=== PATIENT | male | born 1945 | race Caucasian/White ===

== ENCOUNTER 2017-11-12 01:07 | Emergency (ER) | payer MEDICARE, BC, SELFPAY | END 2017-11-12 05:26 | disposition home or self-care (01) | PROVIDERS: Emergency Provider Emergency Medicine; PCP Internal Medicine Cardiovascular Disease; Visit Provider Emergency Medicine | DX: R31.9 Hematuria, unspecified (principal) | CPT/HCPCS: 36415; 51702; 51798; 80048; 81001; 85025; 85610; 85730; 99058; 99283 ==

== ENCOUNTER → 2018-01-01 11:21 | Outpatient (CLI) | payer MEDICARE, BC, SELFPAY ==
[2018-01-01 13:35] LABS: Prothrombin Time 21.7 SECONDS (10.1-12.7)
== END ==
PROVIDERS: PCP Internal Medicine Cardiovascular Disease; Visit Provider Internal Medicine Cardiovascular Disease
DX: I48.1 Persistent atrial fibrillation (principal); I48.4 Atypical atrial flutter
CPT/HCPCS: 36415; 85610

== ENCOUNTER → 2018-02-27 09:44 | Outpatient (CLI) | payer MEDICARE, BC, SELFPAY ==
[2018-02-27 10:32] LABS: INR 1.6 (0.9-1.3); Prothrombin Time 18.1 SECONDS (10.1-12.7)
== END ==
PROVIDERS: Family Provider Internal Medicine Cardiovascular Disease; PCP Internal Medicine Cardiovascular Disease; Visit Provider Internal Medicine Cardiovascular Disease
DX: I48.1 Persistent atrial fibrillation (principal)
CPT/HCPCS: 36415; 85610

== ENCOUNTER → 2018-03-07 09:00 | Outpatient (CLI) | payer MEDICARE, BC, SELFPAY ==
[2018-03-07 09:44] LABS: INR 1.7 (0.9-1.3); Prothrombin Time 19.2 SECONDS (10.1-12.7)
== END ==
PROVIDERS: Family Provider Internal Medicine Cardiovascular Disease; PCP Internal Medicine Cardiovascular Disease; Visit Provider Internal Medicine Cardiovascular Disease
DX: I48.2 Chronic atrial fibrillation (principal)
CPT/HCPCS: 36415; 85610

== ENCOUNTER → 2018-03-16 14:30 | Outpatient (CLI) | payer MEDICARE, BC, SELFPAY ==
[2018-03-16 15:35] LABS: INR 2.9 (0.9-1.3); Prothrombin Time 31.4 SECONDS (10.1-12.7)
== END ==
PROVIDERS: PCP Internal Medicine Cardiovascular Disease; Visit Provider Internal Medicine Cardiovascular Disease
DX: I48.4 Atypical atrial flutter (principal)
CPT/HCPCS: 36415; 85610

== ENCOUNTER → 2018-03-27 13:43 | Outpatient (CLI) | payer MEDICARE, BC, SELFPAY ==
[2018-03-27 15:02] LABS: INR 2.7 (0.9-1.3)
== END ==
PROVIDERS: PCP Internal Medicine Cardiovascular Disease; Visit Provider Internal Medicine Cardiovascular Disease
DX: I48.1 Persistent atrial fibrillation (principal)
CPT/HCPCS: 36415; 85610

== ENCOUNTER → 2018-04-30 12:55 | Outpatient (CLI) | payer MEDICARE, BC, SELFPAY ==
[2018-04-30 13:19] LABS: Prothrombin Time 22.4 SECONDS (10.1-12.7)
== END ==
PROVIDERS: PCP Internal Medicine Cardiovascular Disease; Visit Provider Internal Medicine Cardiovascular Disease
DX: I48.4 Atypical atrial flutter (principal); I48.1 Persistent atrial fibrillation
CPT/HCPCS: 36415; 85610

== ENCOUNTER → 2018-05-07 07:24 | Outpatient (CLI) | payer MEDICARE, BC, SELFPAY ==
[2018-05-07 09:16] LABS: Prothrombin Time 21.7 SECONDS (10.1-12.7)
== END ==
PROVIDERS: PCP Internal Medicine Cardiovascular Disease; Visit Provider Internal Medicine Cardiovascular Disease
DX: I48.1 Persistent atrial fibrillation (principal); I48.4 Atypical atrial flutter
CPT/HCPCS: 36415; 85610

== ENCOUNTER → 2018-05-10 08:14 | Outpatient (CLI) | payer MEDICARE, BC, SELFPAY ==
[2018-05-10 08:51] LABS: Hematocrit 47.5 % (41-53); Hemoglobin 15.9 g/dL (13.5-17.5); Mean Corpuscular HGB Conc 33.5 % (30-36); Mean Corpuscular Hemoglobin 30.9 PG (26-34); Mean Corpuscular Volume 92.1 fL (80-100); Platelet Count 195 X10^3/uL (150-400); Red Blood Cell Count 5.15 X10^6/uL (4.5-5.9); White Blood Cell Count 7.1 X10^3/uL (4.5-11.0)
[2018-05-10 09:20] LABS: Alanine Aminotransferase 31 IU/L (21-72); Albumin 4.5 g/dL (3.5-5.0); Albumin Globulin Ratio 1.5 (1.0-2.8); Alkaline Phosphatase 63 U/L (38-126); Aspartate Aminotransferase 35 IU/L (17-59); Bilirubin Total 0.7 mg/dL (0.2-1.3); Blood Urea Nitrogen 24 mg/dL (9-20); Calcium 9.6 mg/dL (8.4-10.2); Carbon Dioxide 24 mmol/L (22-32); Chloride 104 mmol/L (98-107); Cholesterol 156 mg/dL (140-199); Estimated Glomerular Filt Rate > 60.0 mL/min (>60); Globulin 3.1 g/dL (1.7-4.1); Glucose 130 mg/dL (80-110); HDL Cholesterol 27 mg/dL (40-60); HEMOLYSIS < 15 (0-50); LDL Cholesterol Calculated 74 mg/dL (<100); Potassium 4.1 mmol/L (3.4-5.1); Sodium 141 mmol/L (137-145); Total Protein 7.6 g/dL (6.3-8.2); Triglycerides 276 mg/dL (35-150)
== END ==
PROVIDERS: PCP Internal Medicine Cardiovascular Disease; Visit Provider Internal Medicine Cardiovascular Disease
DX: I48.1 Persistent atrial fibrillation (principal); I48.91 Unspecified atrial fibrillation
CPT/HCPCS: 36415; 80053; 80061; 85027

== ENCOUNTER → 2018-05-16 11:06 | Outpatient (CLI) | payer MEDICARE, BC, SELFPAY ==
[2018-05-16 12:24] LABS: INR 1.8 (0.9-1.3)
== END ==
PROVIDERS: Family Provider Internal Medicine Cardiovascular Disease; PCP Internal Medicine Cardiovascular Disease; Visit Provider Internal Medicine Cardiovascular Disease
DX: I48.1 Persistent atrial fibrillation (principal)
CPT/HCPCS: 36415; 85610

== ENCOUNTER → 2018-05-23 08:10 | Outpatient (CLI) | payer MEDICARE, BC, SELFPAY ==
[2018-05-23 09:49] LABS: INR 2.3 (0.9-1.3); Prothrombin Time 25.6 SECONDS (10.1-12.7)
== END ==
PROVIDERS: PCP Internal Medicine Cardiovascular Disease; Visit Provider Internal Medicine Cardiovascular Disease
DX: I48.1 Persistent atrial fibrillation (principal); I48.91 Unspecified atrial fibrillation
CPT/HCPCS: 36415; 85610

== ENCOUNTER → 2018-06-07 08:47 | Outpatient (CLI) | payer MEDICARE, BC, SELFPAY ==
[2018-06-07 10:29] LABS: INR 2.6 (0.9-1.3); Prothrombin Time 28.3 SECONDS (10.1-12.7)
== END ==
PROVIDERS: PCP Internal Medicine Cardiovascular Disease; Visit Provider Internal Medicine Cardiovascular Disease
DX: I48.4 Atypical atrial flutter (principal)
CPT/HCPCS: 36415; 85610

== ENCOUNTER → 2018-06-12 08:18 | Outpatient (CLI) | payer MEDICARE, BC, SELFPAY ==
[2018-06-12 09:24] LABS: INR 1.9 (0.9-1.3); Prothrombin Time 20.4 SECONDS (10.1-12.7)
== END ==
PROVIDERS: Family Provider Internal Medicine Cardiovascular Disease; PCP Internal Medicine Cardiovascular Disease; Visit Provider Internal Medicine Cardiovascular Disease
DX: I48.1 Persistent atrial fibrillation (principal)
CPT/HCPCS: 36415; 85610

== ENCOUNTER → 2020-01-03 09:38 | Outpatient (CLI) | payer MEDICARE, BC, SELFPAY ==
--- NOTE | 2020-01-03 10:34 | DI.US.S_ITS ---
PROCEDURE: US ABDOMEN LIMITED INDICATIONS: NAUSEA TECHNIQUE: Real-time focused scanning was performed of the abdomen, with image documentation. COMPARISON: None. FINDINGS: The liver demonstrates normal size. The liver demonstrates generalized increased echogenicity, with a heterogeneous, coarse echotexture. This decreases ultrasound sensitivity for detection of hepatic masses. Small sludge balls can be seen within the gallbladder, which appear mobile and do not demonstrate shadowing. The gallbladder wall is not thickened, measuring 3 mm or less. No specific pericholecystic fluid is seen. The sonographic Wilson sign is negative. There is no biliary dilatation, the common bile duct measures 5 mm. The pancreas is not seen. Numerous right renal cysts are incidentally noted, the largest measuring up to 1.7 cm. IMPRESSION: Small sludge balls can be seen within the gallbladder, without additional sonographic signs of cholecystitis. No biliary dilatation. The liver demonstrates increased echogenicity. This finding is nonspecific, yet it is most commonly attributed to fatty infiltration. Dictated by: Macho Mcginnis M.D. on 01/03/2020 at 11:54 Approved by: Macho Mcginnis M.D. on 01/03/2020 at 11:55
== END ==
PROVIDERS: Family Provider Internal Medicine Cardiovascular Disease; PCP Internal Medicine; Referring Provider Internal Medicine; Visit Provider Internal Medicine
DX: R11.2 Nausea with vomiting, unspecified (principal); K83.8 Other specified diseases of biliary tract; N28.1 Cyst of kidney, acquired
CPT/HCPCS: 76705